=== PATIENT | female | born 1985 | race African-American/Black ===

== ENCOUNTER 2018-03-17 16:03 | Outpatient (CLI) | payer OTHER ==
[2018-03-17 21:32] LABS: ADD MAN DIFF? NO
[2018-03-17 21:35] LABS: BASOPHILS % 0.4 % (0.0-2.0); EOSINOPHILS # 0.2 10^3/ul (0.0-0.5); EOSINOPHILS % 2.1 % (0.0-7.0); HEMATOCRIT 32.4 % (37.0-47.0); HEMOGLOBIN 10.8 g/dl (12.0-16.0); LYMPHOCYTES # 2.5 10^3/ul (0.8-2.9); LYMPHOCYTES % 26.7 % (15.0-51.0); MEAN CORPUSCULAR HEMOGLOBIN 28.5 pg (29.0-33.0); MEAN CORPUSCULAR HGB CONC 33.3 g/dl (32.0-37.0); MEAN CORPUSCULAR VOLUME 85.5 fl (82.0-101.0); MEAN PLATELET VOLUME 10.2 fl (7.4-10.4); MONOCYTE # 0.9 10^3/ul (0.3-0.9); MONOCYTES % 9.4 % (0.0-11.0); NEUTROPHIL # 5.7 10^3/ul (1.6-7.5); PLATELET COUNT 270 10^3/UL (140-415); RED BLOOD COUNT 3.79 10^6/ul (4.20-5.40); RED CELL DISTRIBUTION WIDTH 13.3 % (11.5-14.5)
[2018-03-17 21:35] LABS: WHITE BLOOD COUNT 9.4 10^3/ul (4.8-10.8)
[2018-03-17 21:41] LABS: ADD UMIC YES; UR ASCORBIC ACID NEGATIVE (NEGATIVE); UR BILIRUBIN (Dip) NEGATIVE (NEGATIVE); UR BLOOD (Dip) NEGATIVE (NEGATIVE); UR CLARITY CLEAR (CLEAR); UR COLOR YELLOW (YELLOW); UR GLUCOSE (Dip) 2+ mg/dL (NEGATIVE); UR KETONES (Dip) TRACE mg/dL (NEGATIVE); UR LEUKOCYTE ESTERASE (Dip) NEGATIVE Leu/ul (NEGATIVE); UR MUCUS FEW /HPF (NONE SEEN); UR NITRITE (Dip) NEGATIVE (NEGATIVE); UR RBC 7 /HPF (0-5); UR SPECIFIC GRAVITY (Dip) 1.034 (1.003-1.030); UR SQUAMOUS EPITHELIAL CELL FEW /HPF (FEW); UR TOTAL PROTEIN (Dip) 1+ mg/dl (NEGATIVE); UR UROBILINOGEN (Dip) 2+ mg/dL (NEGATIVE); UR WBC 2 /HPF (0-5)
[2018-03-17 21:52] LABS: ALANINE AMINOTRANSFERASE 23 IU/L (13-69); ALBUMIN 3.6 g/dl (3.3-4.9); ALBUMIN/GLOBULIN RATIO 1.05; ALKALINE PHOSPHATASE 55 IU/L (42-121); ANION GAP 13 (8-16); ASPARTATE AMINO TRANSFERASE 12 IU/L (15-46); BILIRUBIN,INDIRECT 0.3 mg/dl (0-1.1); BILIRUBIN,TOTAL 0.3 mg/dl (0.2-1.3); BLOOD UREA NITROGEN 13 mg/dl (7-20); CALCIUM 9.2 mg/dl (8.4-10.2); CARBON DIOXIDE 18 mmol/L (21-31); CHLORIDE 111 mmol/L (97-110); GLUCOSE 82 mg/dl (70-220); POTASSIUM 3.9 mmol/L (3.5-5.1); SODIUM 138 mmol/L (135-144)
[2018-03-18] MEDS: ACETAMINOPHEN 325 MG TAB PO (00:12)
[2018-03-18] MEDS: LACTATED RINGER'S 1,000 ML IV* (01:14)
== END 2018-03-18 02:00 | disposition home or self-care (01) ==
LOC: OBT 16:03 → L-D 16:04
DX: O26.892 Other specified pregnancy related conditions, second trimester (principal); R16.0 Hepatomegaly, not elsewhere classified; M54.9 Dorsalgia, unspecified; Z3A.26 26 weeks gestation of pregnancy
CPT/HCPCS: 76700; 76818; 80053; 81001; 82962; 85025; 87086; 96360; 96361

== ENCOUNTER 2018-06-06 12:28 | Inpatient (IN) | payer OTHER ==
[2018-06-06] MEDS: LACTATED RINGER'S 1,000 ML IV ×2 (14:18→15:28)
[2018-06-06] MEDS ORDERED: OXYTOCIN 30 UNITS/LR 500 ML IV (16:00)
[2018-06-06] MEDS ORDERED: CEFAZOLIN 2 GM/50 ML (PMX) 50 ML IV (16:00)
[2018-06-06] MEDS ORDERED: MISOPROSTOL 200 MCG TAB PR (16:00)
[2018-06-06] MEDS ORDERED: CARBOPROST 250 MCG INJ IM (16:00)
[2018-06-06] MEDS ORDERED: METHYLERGONOVINE 0.2 MG INJ IM (16:00)
[2018-06-06 16:12] LABS: ADD MAN DIFF? NO
[2018-06-06 16:15] LABS: BASOPHILS % 0.5 % (0.0-2.0); EOSINOPHILS # 0.1 10^3/ul (0.0-0.5); EOSINOPHILS % 1.6 % (0.0-7.0); HEMATOCRIT 35.5 % (37.0-47.0); HEMOGLOBIN 11.9 g/dl (12.0-16.0); LYMPHOCYTES # 1.9 10^3/ul (0.8-2.9); LYMPHOCYTES % 30.4 % (15.0-51.0); MEAN CORPUSCULAR HEMOGLOBIN 28.3 pg (29.0-33.0); MEAN CORPUSCULAR HGB CONC 33.5 g/dl (32.0-37.0); MEAN CORPUSCULAR VOLUME 84.5 fl (82.0-101.0); MEAN PLATELET VOLUME 11.1 fl (7.4-10.4); MONOCYTE # 0.7 10^3/ul (0.3-0.9); MONOCYTES % 10.5 % (0.0-11.0); NEUTROPHIL # 3.5 10^3/ul (1.6-7.5); NEUTROPHILS % 56.2 % (39.0-77.0); PLATELET COUNT 292 10^3/UL (140-415); RED CELL DISTRIBUTION WIDTH 14.6 % (11.5-14.5)
[2018-06-06 16:15] LABS: WHITE BLOOD COUNT 6.2 10^3/ul (4.8-10.8)
[2018-06-06 16:34] LABS: PROTIME 13.3 Sec (11.9-14.9)
[2018-06-06 16:35] LABS: PARTIAL THROMBOPLASTIN TIME 27.6 Sec (25.0-35.0)
[2018-06-06 16:39] LABS: GLUCOSE 75 mg/dl (70-220)
[2018-06-06 17:04] LABS: HEPATITIS B SURFACE ANTIGEN NEGATIVE (NEGATIVE)
[2018-06-07] MEDS: LACTATED RINGER'S 1,000 ML IV ×3 (03:26→19:33)
[2018-06-07] MEDS ORDERED: DEXTROSE 50% 50 ML SYRINGE IV ×2 (09:30)
[2018-06-07] MEDS ORDERED: GLUCOSE GEL 15 GRAM TUBE PO ×2 (09:30)
[2018-06-07] MEDS ORDERED: GLUCAGON 1 MG INJ IM (09:30)
[2018-06-07] MEDS ORDERED: GLUCOSE GEL 15 GRAM TUBE BUCCAL (09:30)
[2018-06-07] MEDS: metFORMIN 500 MG TAB PO ×2 (10:36→22:30)
[2018-06-07] MEDS: ENOXAPARIN 40 MG/0.4 ML SYG SC (10:38)
[2018-06-07 15:30] LABS: RAPID PLASMA REAGIN NONREACTIVE (NR)
[2018-06-07] MEDS: ACCU-CHEK XX ×3 (19:39→19:54)
[2018-06-08] MEDS: LACTATED RINGER'S 1,000 ML IV ×4 (03:02→22:43)
[2018-06-08] MEDS ORDERED: OXYTOCIN 30 UNITS/LR 500 ML BAG IV (07:00)
[2018-06-08] MEDS: ACCU-CHEK XX ×5 (07:05→21:00)
[2018-06-08] MEDS: metFORMIN 500 MG TAB PO ×3 (07:35→21:01)
[2018-06-08] MEDS: ENOXAPARIN 40 MG/0.4 ML SYG SC (09:00)
[2018-06-08] MEDS ORDERED: ENOXAPARIN 40 MG/0.4 ML SYG SC (09:00)
[2018-06-08] MEDS: CITRIC ACID/NA CITRATE 30 ML CUP PO (12:09)
[2018-06-08] MEDS: ONDANSETRON 4 MG INJ IV (12:10)
[2018-06-08] MEDS ORDERED: BUPIVACAINE 0.75%/DEXT (SPINAL) 2 ML INJ (13:04)
[2018-06-08] MEDS ORDERED: OXYTOCIN 10 UNIT INJ (13:04)
[2018-06-08] MEDS ORDERED: PHENYLephrine (100 MCG/ML) 5ML SYG ×2 (13:04→13:52)
[2018-06-08] MEDS ORDERED: morphine SULFATE/PF (10 MG/10 ML) INJ (13:04)
[2018-06-08] MEDS ORDERED: DEXAMETHASONE 4 MG/ML 1 ML INJ (13:33)
[2018-06-08] MEDS ORDERED: ONDANSETRON 4 MG INJ (13:33)
[2018-06-08] MEDS ORDERED: METOCLOPRAMIDE 10 MG INJ (13:33)
[2018-06-08] MEDS ORDERED: HYDROCODONE/APAP (5/325) TAB PO (14:00)
[2018-06-08] MEDS ORDERED: ACETAMINOPHEN 500 MG TAB PO (14:00)
[2018-06-08] MEDS ORDERED: morphine 2 MG INJ IV ×2 (14:00)
[2018-06-08] MEDS ORDERED: NALOXONE (0.4 MG/ML) INJ IV (14:00)
[2018-06-08] MEDS ORDERED: NALBUPHINE HCL (10 MG/1 ML) INJ IV (14:00)
[2018-06-08] MEDS ORDERED: DIPHENHYDRAMINE 50 MG INJ IV (14:00)
[2018-06-08] MEDS ORDERED: ONDANSETRON 4 MG INJ IV (14:00)
[2018-06-08] MEDS: OXYTOCIN 30 UNITS/LR 500 ML IV ×3 (14:40→19:43)
[2018-06-08] MEDS ORDERED: OXYTOCIN 30 UNITS/LR 500 ML IV (15:00)
[2018-06-08] MEDS ORDERED: CARBOPROST 250 MCG INJ IM (15:00)
[2018-06-08] MEDS ORDERED: METHYLERGONOVINE 0.2 MG INJ IM (15:00)
[2018-06-08] MEDS ORDERED: MISOPROSTOL 200 MCG TAB PR (15:00)
[2018-06-08] MEDS ORDERED: METHYLERGONOVINE 0.2 MG TAB PO (15:00)
[2018-06-08] MEDS: LANOLIN 7 GM TUBE TOP (19:45)
[2018-06-08] MEDS: SENNA/DOCUSATE NA (8.6MG/50MG) TAB PO (21:01)
[2018-06-09] MEDS: OXYTOCIN 30 UNITS/LR 500 ML IV (00:32)
[2018-06-09] MEDS: HYDROmorphONE 0.5 MG/0.5 ML SYG IV ×3 (00:39→11:35)
[2018-06-09] MEDS: ACCU-CHEK XX ×4 (07:35→21:00)
[2018-06-09 08:05] LABS: ADD MAN DIFF? NO
[2018-06-09 08:11] LABS: BASOPHILS % 0.3 % (0.0-2.0); EOSINOPHILS # 0.1 10^3/ul (0.0-0.5); EOSINOPHILS % 0.7 % (0.0-7.0); HEMATOCRIT 30.1 % (37.0-47.0); HEMOGLOBIN 10.1 g/dl (12.0-16.0); LYMPHOCYTES # 1.8 10^3/ul (0.8-2.9); LYMPHOCYTES % 20.2 % (15.0-51.0); MEAN CORPUSCULAR HEMOGLOBIN 28.4 pg (29.0-33.0); MEAN CORPUSCULAR HGB CONC 33.6 g/dl (32.0-37.0); MEAN CORPUSCULAR VOLUME 84.6 fl (82.0-101.0); MEAN PLATELET VOLUME 10.4 fl (7.4-10.4); MONOCYTE # 0.8 10^3/ul (0.3-0.9); MONOCYTES % 8.9 % (0.0-11.0); NEUTROPHIL # 6.2 10^3/ul (1.6-7.5); NEUTROPHILS % 69.2 % (39.0-77.0); PLATELET COUNT 219 10^3/UL (140-415); RED BLOOD COUNT 3.56 10^6/ul (4.20-5.40); RED CELL DISTRIBUTION WIDTH 13.8 % (11.5-14.5)
[2018-06-09 08:28] LABS: ANION GAP 11 (8-16); BLOOD UREA NITROGEN 7 mg/dl (7-20); CALCIUM 9.1 mg/dl (8.4-10.2); CARBON DIOXIDE 24 mmol/L (21-31); CHLORIDE 102 mmol/L (97-110); CREATININE 0.66 mg/dl (0.44-1.00); GLUCOSE 82 mg/dl (70-220); POTASSIUM 3.8 mmol/L (3.5-5.1); SODIUM 133 mmol/L (135-144)
[2018-06-09] MEDS: ENOXAPARIN 40 MG/0.4 ML SYG SC (08:38)
[2018-06-09] MEDS: SENNA/DOCUSATE NA (8.6MG/50MG) TAB PO ×2 (08:39→21:15)
[2018-06-09] MEDS: LACTATED RINGER'S 1,000 ML IV ×3 (08:40→22:43)
[2018-06-09] MEDS: metFORMIN 500 MG TAB PO ×2 (08:52→18:10)
[2018-06-09] MEDS: HYDROCODONE/APAP (5/325) TAB PO ×3 (14:21→23:39)
[2018-06-09] MEDS: IBUPROFEN 800 MG TAB PO (21:22)
[2018-06-10] MEDS: IBUPROFEN 800 MG TAB PO ×3 (05:52→23:38)
[2018-06-10] MEDS: ACCU-CHEK XX ×4 (08:04→21:00)
[2018-06-10] MEDS: SENNA/DOCUSATE NA (8.6MG/50MG) TAB PO ×2 (09:03→21:54)
[2018-06-10] MEDS: metFORMIN 500 MG TAB PO ×2 (09:03→19:21)
[2018-06-10] MEDS: ENOXAPARIN 40 MG/0.4 ML SYG SC (09:25)
[2018-06-10] MEDS: HYDROCODONE/APAP (5/325) TAB PO ×2 (15:58→20:24)
[2018-06-10] MEDS: MAGNESIUM HYDROXIDE 30ML CUP PO (21:54)
[2018-06-10] MEDS: BISACODYL 10 MG SUPP PR (21:54)
[2018-06-11] MEDS: IBUPROFEN 800 MG TAB PO (07:33)
[2018-06-11] MEDS: ACCU-CHEK XX ×2 (07:35→11:20)
[2018-06-11] MEDS: MEASLES,MUMPS,RUBELLA VACCINE INJ SC* (09:00)
[2018-06-11] MEDS: DIPHTH/TET/ACEL PERTUSS (ADULT) 0.5 ML VIAL IM* (09:00)
[2018-06-11] MEDS: SENNA/DOCUSATE NA (8.6MG/50MG) TAB PO (09:14)
[2018-06-11] MEDS: metFORMIN 500 MG TAB PO (09:14)
[2018-06-11] MEDS: ENOXAPARIN 40 MG/0.4 ML SYG SC (09:18)
[2018-06-11 09:30] LABS: ADD MAN DIFF? NO
[2018-06-11 09:34] LABS: WHITE BLOOD COUNT 6.5 10^3/ul (4.8-10.8)
[2018-06-11 09:34] LABS: BASOPHILS % 0.5 % (0.0-2.0); EOSINOPHILS # 0.1 10^3/ul (0.0-0.5); EOSINOPHILS % 2.2 % (0.0-7.0); HEMATOCRIT 30.1 % (37.0-47.0); HEMOGLOBIN 9.7 g/dl (12.0-16.0); LYMPHOCYTES # 1.7 10^3/ul (0.8-2.9); LYMPHOCYTES % 26.5 % (15.0-51.0); MEAN CORPUSCULAR HEMOGLOBIN 27.9 pg (29.0-33.0); MEAN CORPUSCULAR HGB CONC 32.2 g/dl (32.0-37.0); MEAN CORPUSCULAR VOLUME 86.5 fl (82.0-101.0); MEAN PLATELET VOLUME 10.1 fl (7.4-10.4); MONOCYTE # 0.6 10^3/ul (0.3-0.9); MONOCYTES % 9.1 % (0.0-11.0); NEUTROPHILS % 61.2 % (39.0-77.0); PLATELET COUNT 269 10^3/UL (140-415); RED BLOOD COUNT 3.48 10^6/ul (4.20-5.40); RED CELL DISTRIBUTION WIDTH 14.1 % (11.5-14.5)
== END 2018-06-11 14:40 | disposition home or self-care (01) | DRG 765 ==
LOC: OBT 12:28 → L-D 06-08 13:04 → PP1 06-08 17:08 → OBT 15:40 → L-D 15:40
PROVIDERS: Obstetrics & Gynecology
PROC: 10D00Z1 Extraction of Products of Conception, Low, Open Approach (ICD-10-PCS; principal; 2018-06-08 13:00)
DX: O34.211 Maternal care for low transverse scar from previous cesarean delivery (principal); O24.12 Pre-existing type 2 diabetes mellitus, in childbirth; O10.92 Unspecified pre-existing hypertension complicating childbirth; E87.1 Hypo-osmolality and hyponatremia; Z37.0 Single live birth; Z3A.37 37 weeks gestation of pregnancy; E11.9 Type 2 diabetes mellitus without complications; Z79.84 Long term (current) use of oral hypoglycemic drugs; Z86.711 Personal history of pulmonary embolism; O99.284 Endocrine, nutritional and metabolic diseases complicating childbirth; O99.02 Anemia complicating childbirth
CPT/HCPCS: 80048; 82947; 82962; 85025; 85610; 85730; 86592; 86850; 86900; 86901; 87340; 88305; 88307; 96360; 99464